=== PATIENT | female | born 1990 | race African-American/Black ===

== ENCOUNTER 2019-09-14 20:44 | Emergency (ER) | payer SELFPAY | END 2019-09-14 20:51 | disposition left against medical advice (07) | LOC: ER 20:44 | DX: Z53.21 Procedure and treatment not carried out due to patient leaving prior to being seen by health care provider (principal) ==

== ENCOUNTER 2021-12-17 17:25 | Emergency (ER) | payer OTHER ==
[~2021-12-17] VITALS: Ht 172.7 cm; Wt 118.7 kg
[2021-12-17 17:32] VITALS: BP 195/84
[2021-12-17] MEDS ORDERED: CEPH500C PO (18:25)
--- NOTE | 2021-12-17 18:26 | PHYS DOC ---
Past Medical History Past Surgical History: Other Additional Past Surgical Histo: ABD SURG CHILD Smoking Status: Never Smoker Alcohol Use: Heavy Additional Information: DRINKS WINE DAILY General Adult EDM: Chief Complaint: TOE PROBLEM HPI: HPI: Patient is a 31 year old female who presents with left great toe pain. Patient states that she was climbing up on her steps when her flip-flop got stuck and her toenail was pulled backwards. Patient states that she has been having pain to the area along with some drainage since that occurred this morning. Sensat ion and range of motion are intact. Patient has tenderness to the area. Patient reports taking ibuprofen at home which helped with the discomfort. Patient is rating pain 5/10. Denies other medical history. Review of Systems: Review of Systems: ROS At least 10 ROS systems have been reviewed and are negative except as documented in the HPI. General: Negative except as outlined in HPI above. Skin: Negative except as outlined in HPI above. HEENT: Negative except as outlined in HPI above. Neck: Negative except as outlined in HPI above. Respiratory: Negative except as outlined in HPI above.. Cardiovascular: Negative except as outlined in HPI above. Abdomen: Negative except as outlined in HPI above. : Negative except as outlined in HPI above. Back/MSK: Negative except as outlined in HPI above. Neuro: Negative except as outlined in HPI above. Psych: Negative except as outlined in HPI above. Heart Score: C/O Chest Pain: No Risk Factors: Risk Factors: DM, Current or recent (<one month) smoker, HTN, HLP, family history of CAD, obesity. Risk Scores: Score 0 - 3: 2.5% MACE over next 6 weeks - Discharge Home Score 4 - 6: 20.3% MACE over next 6 weeks - Admit for Clinical Observation Score 7 - 10: 72.7% MACE over next 6 weeks - Early Invasive Strategies Allergies: Allergies: Allergies Coded Allergies Type Severity Reaction Last Updated Verified No Known Drug Allergies 12/17/21 No Physical Exam: PE: Constitutional: Well developed, well nourished, no acute distress, non-toxic appearance. [] HENT: Normocephalic, atraumatic, bilateral external ears normal, oropharynx moist, no oral exudates, nose normal. [] Eyes: PERRLA, EOMI, conjunctiva normal, no discharge. [] Neck: Normal range of motion, no tenderness, supple, no stridor. [] Cardiovascular:Heart rate regular rhythm, no murmur [] Lungs & Thorax: Bilateral breath sounds clear to auscultation [] Abdomen: Bowel sounds normal, soft, no tenderness, no masses, no pulsatile masses. [] Skin: Warm, dry, no erythema to left, great toe Back: No tenderness, no CVA tenderness. [] Extremities: No tenderness, no cyanosis, no clubbing, ROM intact, no edema. Left, great toe tenderness. Neurologic: Alert and oriented X 3, normal motor function, normal sensory function, no focal deficits noted. [] Psychologic: Affect normal, judgement normal, mood normal. [] Current Patient Data: Vital Signs: Vital Signs Date Time Temp Pulse Resp B/P (MAP) Pulse Ox O2 Delivery O2 Flow Rate FiO2 12/17/21 17:32 99.1 89 17 195/84 (121) 97 Room Air 99.1 EKG: EKG: [] Radiology/Procedures: Radiology/Procedures: [] Course & Med Decision Making: Course & Med Decision Making Pertinent Labs and Imaging studies reviewed. (See chart for details) [] 31-year-old female who presents with left, great toe pain after the patient injuring her toe this morning. Patient reports she has drainage and tenderness. Patient is able to bear weight. Sensation intact. Patient is refusing imaging to her foot. Sending patient home with Keflex. Instructed patient to continue taking ibuprofen and Tylenol for discomfort. Follow-up with PCP if continued pain. León Disclaimer: León Disclaimer: This electronic medical record was generated, in whole or in part, using a voice recognition dictation system. Departure Departure Impression: Primary Impression: Toe pain, left Disposition: 01 HOME / SELF CARE / HOMELESS Condition: STABLE Referrals: PREET YOUNGER MD (PCP) Additional Instructions: You were seen in the emergency room after injuring your toenail on your great toe. You refused imaging of your foot to rule out fracture. You were concerned about the drainage from underneath your toenail. I am sending you home with a prescription for cephalexin. Make sure you take this in full and as directed. Can also take ibuprofen and Tylenol for discomfort. Return to the emergency room for worsening symptoms or concerns. EMERGENCY DEPARTMENT GENERAL DISCHARGE INSTRUCTIONS Thank you for coming to [facility] Emergency Department (ED) today and trusting us with you care. We trust that you had a positive experience in our Emergency Department. If you wish to speak to the department management, you may call the Director at [phone]. YOUR FOLLOW UP INSTRUCTIONS ARE FOLLOWS: 1. Do you have a private Doctor? If you do not have a private doctor, please ask for a resource list of physicians or clinics that may be able to assist you with follo w up care. 2. The Emergency Physicain has interpreted your x-rays. The X-Ray specialist will also review them. If there is a change in the findings, you will be notified in 48 hours when at all possible. 3. A lab test or culture has been done, your results will be reviewed and you will be notified if you need a change in treatment. ADDITIONAL INSTRUCTIONS AND INFORMATION: 1. Your care today has been supervised by a physician who is specially trained in emergency care. Many problems require more than one evaluation for a complete diagnosis and treatment. We recommend that you schedule your follow up appointment as rec ommended to ensure complete treatment of you illness or injury. If you are unable to obtain follow up care and continue to have a problem, or if your condition worsens, we recommend that you return to the ED. 2. We are not able to safely determine your condition over the phone nor are we able to give sound medical advice over the phone. For these safety reasons, if you call for medical advice we will ask you to come to the ED for further evaluation. 3. If you have any questions regarding these discharge instructions please call the ED at [phone]. SAFETY INFORMATION: In the interest of safety, wellness, and injury prevention; we encourage you to wear your sealbelt, if you smoke; quite smoking, and we encourage family to use a protective helmet for bicycling and other sporting events that present an increased risk for head injury. IF YOUR SYMPTOMS WORSEN OR NEW SYMPTOMS DEVELOP, OR YOU HAVE CONCERNS ABOUT YOUR CONDITION; OR IF YOUR CONDITION WORSENS WHILE YOU ARE WAITING FOR YOUR FOLLOW UP APPOINTMENT; EITHER CONTACT YOUR PRIMARY CARE DOCTOR, THE PHYSICIAN WHOSE NAME AND NUMBER YOU WERE GIVEN, OR RETURN TO THE ED IMMEDIATELY. Scripts Cephalexin (KEFLEX) 500 Mg Capsule 1 CAP PO BID for infection for 5 Days, #10 CAP 0 Refills Prov: WES DELACRUZ [employer] 12/17/21 WES DELACRUZ [employer] Dec 17, 2021 18:26
== END 2021-12-17 18:38 | disposition home or self-care (01) ==
LOC: ER 17:25
DX: M79.675 Pain in left toe(s) (principal); F10.20 Alcohol dependence, uncomplicated; Y90.9 Presence of alcohol in blood, level not specified
CPT/HCPCS: 99284